=== PATIENT | female | born 1940 | race Caucasian/White ===

== ENCOUNTER 2019-09-06 09:47 | Emergency (ER) | payer MEDICARE ==
[~2019-09-06] VITALS: Ht 157.5 cm; Wt 66.2 kg
[~2019-09-06 09:47] MED LIST: ALBU8HFA PO; ENAL2.5T40 PO; EST1T PO; FLUT16SP2 NS; LEVO150T62 PO; MELO-83 PO; METF500T PO; OMEP-84 PO; TIZA2CAP PO; ZOC40T PO; ZOF4T PO
[2019-09-06] MEDS ORDERED: ALBU6.7H9 INH (11:36)
[2019-09-06] MEDS ORDERED: FLUT1DIS INH (11:36)
[2019-09-06 11:51] VITALS: BP 179/71
== END 2019-09-06 11:50 | disposition home or self-care (01) ==
LOC: ER 09:47
DX: J20.9 Acute bronchitis, unspecified (principal); E78.00 Pure hypercholesterolemia, unspecified; I10 Essential (primary) hypertension; E11.9 Type 2 diabetes mellitus without complications; M19.90 Unspecified osteoarthritis, unspecified site; Z87.01 Personal history of pneumonia (recurrent); Z90.49 Acquired absence of other specified parts of digestive tract; Z90.710 Acquired absence of both cervix and uterus; Z98.890 Other specified postprocedural states; Z87.891 Personal history of nicotine dependence; Z88.1 Allergy status to other antibiotic agents; Z79.899 Other long term (current) drug therapy
CPT/HCPCS: 71046; 99283

== ENCOUNTER 2020-12-27 10:53 | Emergency (ER) | payer MEDICARE ==
[~2020-12-27] VITALS: Ht 152.4 cm; Wt 63.6 kg
[~2020-12-27 10:53] MED LIST changes: +ALBU6.7H9 INH; +FLUT1DIS INH
[2020-12-27] MEDS ORDERED: ketorolac trometh inj. 60 MG/2 ML VIAL IM ONE (11:50)
[2020-12-27] MEDS ORDERED: ketorolac tromethamine 15mg/ml inj. IM ONE (12:00)
[2020-12-27 12:16] LABS: BASOPHILS % (AUTO) 0.3 % (0-1); EOSINOPHILS # (AUTO) 0.1 X10'3 (0-0.9); EOSINOPHILS % (AUTO) 1.4 % (0-6); HEMATOCRIT 36.2 % (35.0-45.0); LYMPHOCYTES # (AUTO) 1.3 X10'3 (1.1-4.8); MEAN CORPUSCULAR HEMOGLOBIN 30.1 PG (27.0-31.0); MEAN CORPUSCULAR HGB CONC 33.2 g/dL (33.0-36.5); MEAN CORPUSCULAR VOLUME 90.7 FL (78-98); MEAN PLATELET VOLUME 7.7 FL (7.4-10.4); MONOCYTES # (AUTO) 0.7 X10'3 (0-0.9); MONOCYTES % (AUTO) 7.6 % (2-12); NEUTROPHILS % (AUTO) 76.7 % (42-75); PLATELET COUNT 333 X10'3 (140-440); RED CELL DISTRIBUTION WIDTH 13.7 % (11.5-14.5); WHITE BLOOD COUNT 9.1 X10'3 (4.5-11.0)
[2020-12-27 12:17] LABS: CLARITY,URINE CLOUDY (Clear); COLOR,URINE YELLOW (Yellow); GLUCOSE, URINE NEGATIVE (Neg); KETONES,URINE NEGATIVE (Neg); LEUKOCYTE ESTERASE ,URINE MODERATE (Neg); NITRITES, URINE NEGATIVE (Neg); OCCULT BLOOD,URINE TRACE-INTACT (Neg); PROTEIN,URINE NEGATIVE (Neg); UROBILINOGEN,URINE 0.2 E.U/dL (0.2-1.0)
--- NOTE | 2020-12-27 12:21 | NUR ---
patient did not take her medications today
[2020-12-27 12:22] LABS: UA COLLECTION TYPE CLN CATCH MIDSTREAM
[2020-12-27 12:24] LABS: BACTERIA,URINE 1+ /HPF (Neg); MUCUS STRANDS FEW /LPF (Neg); RBC,URINE 0-2 /HPF (0-2); SQUAMOUS EPITHELIAL CELL,UR MANY /LPF (FEW); WBC,URINE 30-50 /HPF (0-4)
--- NOTE | 2020-12-27 12:24 | NUR ---
patient has moderate swelling superior to left shoulder in addition to swelling in her right shoulder
[2020-12-27 12:29] LABS: ALANINE AMINOTRANSFERASE 21 U/L (12-78); ALBUMIN 3.2 G/DL (3.4-5.0); ALBUMIN/GLOBULIN RATIO 0.7 (1.1-1.5); ALKALINE PHOSPHATASE 80 IU/L (46-116); ANION GAP 11 (8-16); ASPARTATE AMINO TRANSFERASE 18 U/L (10-37); BILIRUBIN,TOTAL 0.3 MG/DL (0.1-1.0); BLOOD UREA NITROGEN 41 MG/DL (7-18); BUN/CREATININE RATIO 26.5 (6.6-38.0); C-REACTIVE PROTEIN 7.45 MG/DL (0.0-0.5); CALCIUM 9.7 MG/DL (8.5-10.1); CHLORIDE 103 MMOL/L (99-107); CREATININE 1.55 MG/DL (0.40-0.90); GLUCOSE 150 MG/DL (70-104); POTASSIUM 4.3 MMOL/L (3.5-5.1); SODIUM 138 MMOL/L (135-145); TOTAL CARBON DIOXIDE 23.9 MMOL/L (24-32); TOTAL PROTEIN 7.5 G/DL (6.4-8.2); eGFR 32 ML/MIN
[2020-12-27] MEDS ORDERED: cephalexin 250mg capsule PO ONE (12:35)
[2020-12-27] MEDS ORDERED: CEPH-585 PO (12:35)
[2020-12-27 12:49] VITALS: BP 171/70
== END 2020-12-27 12:54 | disposition home or self-care (01) ==
LOC: ER 10:53
DX: N39.0 Urinary tract infection, site not specified (principal); M75.52 Bursitis of left shoulder; M79.18 Myalgia, other site; E78.00 Pure hypercholesterolemia, unspecified; I10 Essential (primary) hypertension; E11.9 Type 2 diabetes mellitus without complications; M19.90 Unspecified osteoarthritis, unspecified site; Z90.49 Acquired absence of other specified parts of digestive tract; Z90.710 Acquired absence of both cervix and uterus; Z98.890 Other specified postprocedural states; Z88.1 Allergy status to other antibiotic agents; Z88.8 Allergy status to other drugs, medicaments and biological substances; Z79.899 Other long term (current) drug therapy
CPT/HCPCS: 36415; 80053; 81001; 84145; 85025; 86140; 96372; 99283; J1885

== ENCOUNTER 2024-10-04 11:19 | Emergency (ER) | payer MEDICARE ==
[~2024-10-04] VITALS: Ht 152.4 cm; Wt 65.9 kg
[~2024-10-04 11:19] MED LIST changes: +ALBU6.7H14 INH; -ALBU6.7H9 INH
[2024-10-04 11:31] VITALS: BP 143/73; PULSE 68; RESP 18; TEMP 97.7; O2SAT 98
== END 2024-10-04 13:03 | disposition home or self-care (01) ==
LOC: ER 11:19
DX: R05.9 Cough, unspecified (principal); E11.9 Type 2 diabetes mellitus without complications; E78.00 Pure hypercholesterolemia, unspecified; I10 Essential (primary) hypertension; M19.90 Unspecified osteoarthritis, unspecified site; Z90.49 Acquired absence of other specified parts of digestive tract; Z90.710 Acquired absence of both cervix and uterus; Z98.890 Other specified postprocedural states; Z88.1 Allergy status to other antibiotic agents; Z88.8 Allergy status to other drugs, medicaments and biological substances
CPT/HCPCS: 71045; 99283